=== PATIENT | female | born 1975 | race Caucasian/White ===

== ENCOUNTER 2023-08-14 00:54 | Day surgery (SDC) | payer OTHER, SELFPAY ==
[2023-08-01 15:27] VITALS: BMI 25.8
[2023-08-14 11:32] VITALS: BP 134/77; PULSE 64; RESP 18; TEMP 36.3; O2SAT 100
[2023-08-14] MEDS: LACTATED RINGERS 1,000 ML 150 ML IV CONT (11:41)
--- NOTE | 2023-08-14 11:42 | P.PNAN_ITS ---
Anes - Initial Pre Proc Eval Procedure: Operation Date: 08/14/23 13:00 Proposed Procedures p Esophagogastroduodenoscopy & Colonoscopy - Flako Navarro MD Date/Time: 08/14/23 11:42 Surgeon: Flako Navarro MD Pre Op Diagnosis: change in bowel habit, GERD, abdominal tenderness, Patient Data Age: 48 Gender: F Height: 1.63 m Weight: 69.5 kg Last Vital Signs Temp 97.3 F L 08/14/23 11:32 Pulse 64 08/14/23 11:32 Resp 18 08/14/23 11:32 BP 134/77 08/14/23 11:32 Pulse Ox 100 08/14/23 11:32 O2 Del Method Room Air 08/14/23 11:32 Allergies Allergy/AdvReac Type Severity Reaction Status Date / Time aspirin Allergy Unknown Hives / Verified 08/14/23 11:31 Red Face Penicillins Allergy Unknown Hives / Verified 08/14/23 11:31 Red Face Home Medications Medication Instructions Recorded Confirmed Type pantoprazole 20 mg tablet,delayed 20 mg PO QAM 06/11/23 08/14/23 History release Patient hx anesthesia problems: none Family hx anesthesia problems: none Results Review: All pre-operative results and documents have been reviewed as part of the pre- operative evaluation. [facility] Past Medical History Medical History (Updated 07/03/23 @ 10:06 by Neda Castillo APN-Rob) Anxiety Asthma Change in bowel habits Depression Diabetes GERD (gastroesophageal reflux disease) Nausea and vomiting Surgical History Surgical History History of breast lump/mass excision 1993 - benign cyst History of tonsillectomy 1995 History of tubal ligation 2002 Family History Family History Father CHF (congestive heart failure) Hypertension Other Diabetes mellitus Heart disease Hypertension Cancer CHF (congestive heart failure) COPD (chronic obstructive pulmonary disease) Depression Social History Social History Smoking packs per day: 1 Smoking cigarettes per day: 20.0 Years smoked: 30 Smoking pack-years: 30.00 Smoking status: Current every day smoker Tobacco type: cigarettes Alcohol intake: never Substance use: former Substance use type: marijuana, 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 Informed Consent: The patient's anesthetic plan and its attendant risks and benefits were discussed with the patient/family/POA. Questions were solicited and answers provided to the satisfaction of the patient/family/POA.
--- NOTE | 2023-08-14 11:42 | PM.HPGS ---
History of Present Illness History of Present Illness Consent: Risks, benefits, and alternatives have been discussed and questions answered. Patient agrees to proceed with procedure. Chief complaint: change in bowel habit, GERD, abdominal tenderness, Narrative: Meredith Lindo is a 48 year old female with upper abdominal knot and bloating, she does report a long history of GERD for past 10 years that was treated with H2 blockers.? She was started on pantoprazole 20 mg daily few months ago and reflux symptoms are pretty well controlled. Never had scopes, CT scan no major findings. Review of Systems Constitutional: Constitutional: Denies headache(s) and Denies weakness Eyes: Eyes: Denies blurry vision ENT: Reports Normal hearing present, Denies headache(s) and Denies neck pain Cardiovascular: Cardiovascular: Denies chest pain and Denies dyspnea Respiratory: Respiratory: Denies dyspnea Gastrointestinal: Gastrointestinal: Reports no additional gastrointestinal complaints Genitourinary: Genitourinary: Denies dysuria Musculoskeletal: Musculoskeletal: Denies neck pain Integumentary/Breasts: Skin/Breast: Denies dry skin Neurologic: Reports Normal hearing present, Denies headache(s) and Denies weakness Psychiatric: Psychiatric: Denies anxiety Endocrine: Endocrine: Denies change in body appearance Hematologic/Lymphatic: Hematologic/Lymphatic: Denies easy bleeding Allergic/Immunologic: Allergic/Immunologic: Denies urticaria PMFSH Past Medical History Medical History (Updated 07/03/23 @ 10:06 by REINIER DossN-C) Anxiety Asthma Change in bowel habits Depression Diabetes GERD (gastroesophageal reflux disease) Nausea and vomiting Surgical History Surgical History History of breast lump/mass excision 1993 - benign cyst History of tonsillectomy 1995 History of tubal ligation 2002 Family History Family History Father CHF (congestive heart failure) Hypertension Other Diabetes mellitus Heart disease Hypertension Cancer CHF (congestive heart failure) COPD (chronic obstructive pulmonary disease) Depression Social History Social History Smoking packs per day: 1 Smoking cigarettes per day: 20.0 Years smoked: 30 Smoking pack-years: 30.00 Smoking status: Current every day smoker Tobacco type: cigarettes Alcohol intake: never Substance use: former Substance use type: marijuana, 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) Living arrangements: alone Spiritual care concerns: No Meds Home Medications and Allergies Home Medications Medication Instructions Recorded Confirmed Type pantoprazole 20 mg tablet,delayed 20 mg PO QAM 06/11/23 08/14/23 History release Allergies Allergy/AdvReac Type Severity Reaction Status Date / Time aspirin Allergy Unknown Hives / Verified 08/14/23 11:31 Red Face Penicillins Allergy Unknown Hives / Verified 08/14/23 11:31 Red Face Vital Signs Vital Signs - 24 hr 08/14/23 11:32 Temperature 97.3 F L Pulse Rate 64 Respiratory Rate 18 Blood Pressure 134/77 Pulse Oximetry 100 Oxygen Delivery Room Air Exam Const: General: comfortable and no acute distress HENMT: Face/Nose/Sinus: Normal nares present Eyes: General: appearance normal, both eyes and all related structures Neck: Neck: no JVD Resp: Auscultation: clear to auscultation bilaterally Cardio: Rate: regular rate Rhythm: regular rhythm GI: Inspection: non-distended GI Palp: Yes Soft to palpation Skin: General skin exam: normal color Neuro: General: gait normal Speech: normal speech Extrem: General: normal to inspection Psych: Mental Status: mental status grossly normal Assessment and Plan Assessment and plan
[2023-08-14] MEDS: BENZOCAINE (*SP) 60 ML SPRAY CAN (HURRICAINE) 1 SPRAY MUCOUS MEM (11:50)
--- NOTE | 2023-08-14 11:58 | SUR.OPER ---
EGD start 1150 end 1154, Colonoscopy start 1159.
--- NOTE | 2023-08-14 11:59 | SUR.OPER ---
CHIEF INFORMATION SECURITY OFFICER used oral suction for excess secretions during procedure.
[2023-08-14 12:10] VITALS: BP 87/50; PULSE 68; RESP 22; O2SAT 96
[2023-08-14 12:20] VITALS: BP 97/67; PULSE 70; RESP 20; O2SAT 97
[2023-08-14 12:30] VITALS: BP 105/65; PULSE 64; RESP 20; O2SAT 100
[2023-08-14 12:40] VITALS: BP 110/91; PULSE 72; RESP 20; O2SAT 100
== END 2023-08-14 13:50 | disposition home or self-care (01) ==
PROVIDERS: PCP Nurse Practitioner; Visit Provider Internal Medicine Gastroenterology
PROC: 0DJ08ZZ Inspection of Upper Intestinal Tract, Via Natural or Artificial Opening Endoscopic (ICD-10-PCS; CPT 43235; principal; 2023-08-14 13:00)
DX: Z12.11 Encounter for screening for malignant neoplasm of colon (principal); K29.50 Unspecified chronic gastritis without bleeding; K21.00 Gastro-esophageal reflux disease with esophagitis, without bleeding; K44.9 Diaphragmatic hernia without obstruction or gangrene; F17.210 Nicotine dependence, cigarettes, uncomplicated
CPT/HCPCS: 45378; 43239; 88305; J2704; J7120

== ENCOUNTER 2023-12-19 00:55 | Day surgery (SDC) | payer OTHER, SELFPAY ==
[2023-12-05 14:11] VITALS: BMI 24.1
--- NOTE | 2023-12-17 11:23 | SUR.PREOP ---
Patient called regarding upcoming procedure. Spoke with sister Michelle. Michelle said she would give Meredith the message and have her call me back.
[2023-12-19 12:27] VITALS: BP 121/76; PULSE 65; RESP 19; TEMP 36.2; O2SAT 100
[2023-12-19] MEDS: LACTATED RINGERS 1,000 ML 150 ML IV CONT (12:37)
--- NOTE | 2023-12-19 12:56 | P.PNAN_ITS ---
Anes - Initial Pre Proc Eval Procedure: Operation Date: 12/19/23 14:30 Proposed Procedures p Esophagogastroduodenoscopy - Flako Navarro MD Date/Time: 12/19/23 12:56 Surgeon: Flako Navarro MD Pre Op Diagnosis: Esophagitis Patient Data Age: 48 Gender: F Height: 1.63 m Weight: 65 kg Last Vital Signs Temp 97.1 F L 12/19/23 12:27 Pulse 65 12/19/23 12:27 Resp 19 12/19/23 12:27 BP 121/76 12/19/23 12:27 Pulse Ox 100 12/19/23 12:27 O2 Del Method Room Air 12/19/23 12:27 Allergies Allergy/AdvReac Type Severity Reaction Status Date / Time aspirin Allergy Unknown Hives / Verified 12/19/23 12:26 Red Face Penicillins Allergy Unknown Hives / Verified 12/19/23 12:26 Red Face Home Medications Medication Instructions Recorded Confirmed Type pantoprazole 20 mg tablet,delayed 20 mg PO Q12H #60 tabs 08/14/23 12/19/23 Rx release Patient hx anesthesia problems: none Family hx anesthesia problems: none Results Review: All pre-operative results and documents have been reviewed as part of the pre- operative evaluation. [facility] Past Medical History Medical History (Updated 07/03/23 @ 10:06 by Neda Castillo APN-Rob) Anxiety Asthma Change in bowel habits Depression Diabetes GERD (gastroesophageal reflux disease) Nausea and vomiting Surgical History Surgical History History of breast lump/mass excision 1993 - benign cyst History of tonsillectomy 1995 History of tubal ligation 2002 Family History Family History Father CHF (congestive heart failure) Hypertension Other Diabetes mellitus Heart disease Hypertension Cancer CHF (congestive heart failure) COPD (chronic obstructive pulmonary disease) Depression Social History Social History Smoking packs per day: 1 Smoking cigarettes per day: 20.0 Years smoked: 30 Smoking pack-years: 30.00 Smoking status: Current every day smoker Tobacco type: cigarettes Alcohol intake: current Substance use: former Substance use type: crack/cocaine Other substance usage details: has been sober for 1 yr Living arrangements: other Spiritual care concerns: No Anes - Eval Final PreProcedure Day of Procedure 12/19/23 12:56 Patient weight: normal Heart: regular rate and rhythm Lungs: clear to auscultation Airway: Mallampati scale class II Neurological: alert and oriented Last oral intake: >/= 8 hours ASA classification: II Emergent: no Anesthetic plan: proceed Anesthesia type and monitoring: general GIVS and standard monitoring Results Review: All pre-operative results and documents have been reviewed as part of the pre- operative evaluation. Informed Consent: The patient's anesthetic plan and its attendant risks and benefits were discussed with the patient/family/POA. Questions were solicited and answers provided to the satisfaction of the patient/family/POA.
--- NOTE | 2023-12-19 13:03 | PM.HPGS ---
History of Present Illness History of Present Illness Consent: Risks, benefits, and alternatives have been discussed and questions answered. Patient agrees to proceed with procedure. Chief complaint: Esophagitis Narrative: Meredith Lindo is a 48 year old female with gerd on pantoprazole, still symptomatic, also hiatal hernia. EGD today to assess healing of esophagitis. Review of Systems Constitutional: Constitutional: Denies headache(s) and Denies weakness Eyes: Eyes: Denies blurry vision ENT: Reports Normal hearing present, Denies headache(s) and Denies neck pain Cardiovascular: Cardiovascular: Denies chest pain and Denies dyspnea Respiratory: Respiratory: Denies dyspnea Gastrointestinal: Gastrointestinal: Reports no additional gastrointestinal complaints Genitourinary: Genitourinary: Denies dysuria Musculoskeletal: Musculoskeletal: Denies neck pain Integumentary/Breasts: Skin/Breast: Denies dry skin Neurologic: Reports Normal hearing present, Denies headache(s) and Denies weakness Psychiatric: Psychiatric: Denies anxiety Endocrine: Endocrine: Denies change in body appearance Hematologic/Lymphatic: Hematologic/Lymphatic: Denies easy bleeding Allergic/Immunologic: Allergic/Immunologic: Denies urticaria PMF Past Medical History Medical History (Updated 12/19/23 @ 13:04 by Flako Navarro MD) Anxiety Asthma Change in bowel habits Depression Diabetes GERD (gastroesophageal reflux disease) Hiatal hernia Nausea and vomiting Surgical History Surgical History History of breast lump/mass excision 1993 - benign cyst History of tonsillectomy 1995 History of tubal ligation 2002 Family History Family History Father CHF (congestive heart failure) Hypertension Other Diabetes mellitus Heart disease Hypertension Cancer CHF (congestive heart failure) COPD (chronic obstructive pulmonary disease) Depression Social History Social History Smoking packs per day: 1 Smoking cigarettes per day: 20.0 Years smoked: 30 Smoking pack-years: 30.00 Smoking status: Current every day smoker Tobacco type: cigarettes Alcohol intake: current Substance use: former Substance use type: crack/cocaine Other substance usage details: has been sober for 1 yr Living arrangements: other Spiritual care concerns: No Meds Home Medications and Allergies Home Medications Medication Instructions Recorded Confirmed Type pantoprazole 20 mg tablet,delayed 20 mg PO Q12H #60 tabs 08/14/23 12/19/23 Rx release Allergies Allergy/AdvReac Type Severity Reaction Status Date / Time aspirin Allergy Unknown Hives / Verified 12/19/23 12:26 Red Face Penicillins Allergy Unknown Hives / Verified 12/19/23 12:26 Red Face Vital Signs Vital Signs - 24 hr 12/19/23 12:27 Temperature 97.1 F L Pulse Rate 65 Respiratory Rate 19 Blood Pressure 121/76 Pulse Oximetry 100 Oxygen Delivery Room Air Exam Const: General: comfortable and no acute distress HENMT: Face/Nose/Sinus: Normal nares present Eyes: General: appearance normal, both eyes and all related structures Neck: Neck: no JVD Resp: Auscultation: clear to auscultation bilaterally Cardio: Rate: regular rate Rhythm: regular rhythm GI: Inspection: non-distended GI Palp: Yes Soft to palpation Skin: General skin exam: normal color Neuro: General: gait normal Speech: normal speech Extrem: General: normal to inspection Psych: Mental Status: mental status grossly normal Assessment and Plan Assessment and plan (1) GERD (gastroesophageal reflux disease): Code(s): K21.9 - Gastro-esophageal reflux disease without esophagitis Status: Acute Assessment and Plan: egd to assess healing on ppi daily (2) Hia
[2023-12-19 13:17] VITALS: BP 119/96; PULSE 80; RESP 20; O2SAT 100
[2023-12-19 13:27] VITALS: BP 103/69; PULSE 58; RESP 22; O2SAT 100
[2023-12-19 13:37] VITALS: BP 112/69; PULSE 58; RESP 22; O2SAT 100
== END 2023-12-19 13:57 | disposition home or self-care (01) ==
PROVIDERS: PCP Nurse Practitioner; Visit Provider Internal Medicine Gastroenterology
PROC: 0DJ08ZZ Inspection of Upper Intestinal Tract, Via Natural or Artificial Opening Endoscopic (ICD-10-PCS; CPT 43235; principal; 2023-12-19 14:30)
DX: K21.00 Gastro-esophageal reflux disease with esophagitis, without bleeding (principal); K44.9 Diaphragmatic hernia without obstruction or gangrene; F17.210 Nicotine dependence, cigarettes, uncomplicated; F14.21 Cocaine dependence, in remission
CPT/HCPCS: 43239; 88305; J2704; J7120

== ENCOUNTER 2024-01-28 07:58 | Outpatient (CLI) | payer OTHER, SELFPAY ==
--- NOTE | ~2024-01-28 | XR_ITS ---
EXAMINATION: XR UGIAC w barium swallow DATE: 01/28/2024 09:08 INDICATION: Umbilical hernia. Gastroesophageal reflux disease. TECHNIQUE: The patient drank thick barium, gas-producing crystals, and thin barium. Fluoroscopic spot radiographs of the hypopharynx, esophagus, stomach and proximal small bowel were obtained. Fluorosco py exposure time was 2.1 minutes. A total of 1374 fluoroscopic images were recorded. Total DAP was 9. 923 mGycm^2. COMPARISON: None. FINDINGS: The pharynx is symmetric and without evidence of mass lesion or mucosal irregularity. The e sophagus is normal without mass or stricture. Esophageal motility is normal. Small sliding-type hiata l hernia with gastroesophageal junction approximately 4.5 cm above the level of the diaphragm. There was recurrent spontaneous gastroesophageal reflux the contrast. The stomach and proximal small bowel are otherwise normal. IMPRESSION: 1. Small sliding-type hiatal hernia with multiple episodes of spontaneous gastroesophageal reflux. Reviewed, dictated and finalized at location A. IMPRESSION: 1. Small sliding-type hiatal hernia with multiple episodes of spontaneous gastr oesophageal reflux.
== END 2024-01-28 07:59 | disposition home or self-care (01) ==
PROVIDERS: PCP Nurse Practitioner; Visit Provider Surgery
DX: K21.9 Gastro-esophageal reflux disease without esophagitis (principal); K44.9 Diaphragmatic hernia without obstruction or gangrene
CPT/HCPCS: 74246

== ENCOUNTER 2024-06-03 09:46 | Outpatient (CLI) | payer OTHER, SELFPAY ==
--- NOTE | ~2024-06-03 | XR_ITS ---
EXAMINATION: XR chest 2V 06/03/2024 10:59 INDICATION: Diaphragmatic hernia PROCEDURE: 2 view chest COMPARISON: No prior studies for comparison. FINDINGS: The lungs are clear. The lungs are hyperinflated which is consistent with, but not diagnost ic of chronic obstructive pulmonary disease. The cardiomediastinal silhouette is within normal limits . There are no pleural effusions. There is no pneumothorax suspected. IMPRESSION: 1: NO ACUTE CARDIOPULMONARY DISEASE. Reviewed, dictated and finalized at location B.
--- NOTE | 2024-06-03 09:53 | ECG_ITS ---
Test Date: 2024-06-03 10:07:45 Measurements Intervals [place] Rate: 63 P: 82 PA: 139 QRS: 43 QRSD: 71 T: 11 QT: 415 QTc: 428 Interpretive Statements SINUS RHYTHM POSSIBLE LEFT ATRIAL ENLARGEMENT NONSPECIFIC ST-T WAVE ABNORMALITY- INFERIOR LEADS BASELINE ARTIFACT- I, III, AVR, AVL, AVF, V4-V6 BORDERLINE ECG No previous ECG available for comparison Electronically Signed On 06-03-2024 10:25:40 CDT by Dann Salas D.O.
[2024-06-03 10:16] LABS: Basophils Percent Auto 0.7 % (0.2-1.2); Eosinophils Absolute Auto 0.2 K/mm3 (0-0.3); Hematocrit 37.8 % (37.0-47.0); Hemoglobin 12.1 g/dL (12.0-15.0); Immature Granulocyte Absolute 0.01 K/mm3 (0.00-0.031); Immature Granulocyte Percent A 0.2 % (0-0.5); Lymphocytes Percent Auto 31.6 % (18.3-44.2); Mean Corpuscular Hemoglobin 27.3 pg (26-34); Mean Corpuscular Volume 85.3 fl (80-100); Mean Platelet Volume 9.3 fl (7.4-10.4); Monocytes Absolute Auto 0.6 K/mm3 (0.1-0.6); Monocytes Percent Auto 10.4 % (2.6-8.5); Neutrophils Absolute Auto 2.9 K/mm3 (1.3-6.7); Neutrophils Percent Auto 54.1 % (45.5-73.1); Platelet Count Result 324 k/mm3 (150-375); Red Blood Count 4.43 M/mm3 (4.2-5.4); Red Cell Distribution Width 14.6 % (11.5-14.5); White Blood Count 5.4 K/mm3 (4.5-10.0)
[2024-06-03 10:25] LABS: Anion Gap 6 mmol/L (4-12); Blood Urea Nitrogen 18 mg/dL (7-17); Calcium 8.6 mg/dL (8.4-10.2); Carbon Dioxide 28 mmol/L (22-30); Chloride 103 mmol/L (98-107); Estimated Glomerular Filt Rate > 60; Glucose 92 mg/dL (65-110); Sodium 137 mmol/L (137-145)
== END 2024-06-03 09:47 | disposition home or self-care (01) ==
LOC: ANHSURGERY 09:50
PROVIDERS: PCP Nurse Practitioner; Visit Provider Surgery
DX: Z01.818 Encounter for other preprocedural examination (principal); K44.9 Diaphragmatic hernia without obstruction or gangrene
CPT/HCPCS: 36415; 71046; 80048; 85025; 86850; 86900; 86901; 93005

== ENCOUNTER 2024-06-06 15:26 | Observation (INO) | payer OTHER, SELFPAY ==
[2024-06-02 13:20] VITALS: BMI 24.9
--- NOTE | 2024-06-02 13:22 | PC.NURSE ---
Report to the Outpatient Waiting Room, entrance under the green pavilion located off [facility], at time _1000_ on date _[id number]_. Planned Procedure Time: _1200_. Time changes happen often and if your time is changed the preop area will call you the afternoon before. - You and your visitor will be asked to self-screen and do not enter if you have any COVID symptoms. - A mask is optional within the hospital at this time. Patients may have clear liquids (water, carbonated beverages, clear teas, apple juice) until 3 hours prior to surgery with a maximum of 20 ounces. - No food from midnight until time of surgery Take the following medications with a SIP of water the morning of surgery: ___None DO NOT STOP ANY OF YOUR OTHER PRESCRIPTION MEDICATIONS PRIOR TO SURGERY ?EXCEPT THE FOLLOWING Medications to discontinue per physician None Date to take last dose Please no make-up, nail malay, hairspray, perfume, deodorant, or body powder the day of surgery. No jewelry (including any body piercings) or valuables the day of surgery, leave them at home. Please take a shower or bath the night before, or the morning of, surgery with an antibacterial soap. Wear comfortable, loose fitting clothing. - Jewelry must be removed prior to entering the operating room. Rings and piercings that are not removed may be cut off. - The hospital will not accept responsibility for valuables. - Please leave all valuables, including medications, at home the day of surgery. If you are going home after surgery, a licensed tow motor driver must drive you home. - NO public transportation without another adult if you receive anesthesia. - We recommend that an adult stay with you for 24 hours following discharge. - We also recommend that you do not drive, make important decision, drink alcoholic beverages, or take any drugs that were not prescribed by your health care provider for at least 24 hours after your discharge time. Follow any additional instructions given to you from your surgeon. If you or anyone in your household have experienced Covid symptoms in the past week, please notify your surgeon or the nurse liaison at the phone number below for possible testing. Telephone instructions given to __Rosannaafrica___and asked if any additional questions and then verbalized understanding. Patient advised to call surgeon office or pre surgery nurse liaison [phone] if any additional questions.
[2024-06-05] VITALS (12 sets, daily range): BP systolic 125–169; BP diastolic 62–92; PULSE 56–84; RESP 10–20; TEMP 36.1–37.1; O2SAT 94–100
[2024-06-05] MEDS: LACTATED RINGERS 1,000 ML 30 ML IV CONT ×2 (10:35→15:49)
--- NOTE | 2024-06-05 11:11 | WPDANESEPPF ---
Anes - Initial Pre Proc Eval Procedure: Operation Date: 06/05/24 12:00 Proposed Procedures p Robotic Laparoscopic Repair Hiatal Hernia Repair with Amelia Fundoplication, Removal Adominal Wall Nodule - Td Pat MD Date/Time: 06/05/24 11:11 Surgeon: Td Pat MD Pre Op Diagnosis: hiatal hernia Patient Data Age: 48 Gender: F Height: 1.63 m Weight: 66.2 kg Last Vital Signs Temp 97.5 F L 06/05/24 09:59 Pulse 72 06/05/24 09:59 Resp 20 06/05/24 09:59 BP 125/92 H 06/05/24 09:59 Pulse Ox 100 06/05/24 09:59 O2 Del Method Room Air 06/05/24 09:59 Allergies Allergy/AdvReac Type Severity Reaction Status Date / Time aspirin Allergy Unknown Hives / Verified 06/05/24 10:12 Red Face Penicillins Allergy Unknown Hives / Verified 06/05/24 10:12 Red Face hydrocodone [From Vicodin] Allergy Vomiting Verified 06/05/24 10:12 Home Medications Medication Instructions Recorded Confirmed Type famotidine 40 mg tablet 40 mg PO DAILY 01/10/24 06/05/24 History Patient hx anesthesia problems: none Family hx anesthesia problems: none Results Review: All pre-operative results and documents have been reviewed as part of the pre-operative evaluation. [facility] Past Medical History Medical History Anxiety Asthma Change in bowel habits Depression Diabetes GERD (gastroesophageal reflux disease) Hiatal hernia Nausea and vomiting Surgical History Surgical History History of breast lump/mass excision 1993 - benign cyst History of tonsillectomy 1995 History of tubal ligation 2002 Family History Family History Father CHF (congestive heart failure) Hypertension Other Diabetes mellitus Heart disease Hypertension Cancer CHF (congestive heart failure) COPD (chronic obstructive pulmonary disease) Depression Social History Social History Smoking packs per day: 1 Smoking cigarettes per day: 20.0 Years smoked: 30 Smoking pack-years: 30.00 Smoking status: Never smoker Tobacco type: cigarettes and e-cigarettes/vaping Alcohol intake: former 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 Substance use: former Substance use type: marijuana, crack/cocaine and methamphetamine Other substance usage details: 18 months clean Do You Feel Safe in your Home?: Yes Lack of Transportation: No Lack of Food: Never True Current Housing: I Have Housing Concerned About Future Housing: No Difficulty Paying Gas/Electric Bills: No Difficulty Paying for Meds: No Currently Unemployed: No Education: High School Diploma/GED Difficulty w/ Childcare or Family Care: No Living arrangements: with family Spiritual care concerns: No Anes - Eval Final PreProcedure Day of Procedure 06/05/24 11:11 Patient weight: overweight Heart: regular rate and rhythm Lungs: clear to auscultation Airway: Mallampati scale and special considerations (Missing many teeth on the lower mid aspect. ) Neurological: alert and oriented Last oral intake: >/= 8 hours ASA classification: II Emergent: no Anesthetic plan: proceed Anesthesia type and monitoring: general ETT and standard monitoring Results Review: All pre-operative results and documents have been reviewed as part of the pre-operative evaluation. Ex smoker, quit 2023, 30 pk/yrs. Pt currently vapes, most recently today at 930. PreDM per pt. Informed Consent: The patient's anesthetic plan and its attendant risks and benefits were discussed with the patient/family/POA. Questions were solicited and answers provided to the satisfaction of the patient/family/POA.
--- NOTE | 2024-06-05 11:40 | WPDHPUPDATE1 ---
History and Physical Update Update Date/Time: 06/05/24 11:40 History and Physical has been reviewed, including an updated exam of the patient. There are NO changes in the patient's condition. Risks, benefits, and alternatives have been discussed and questions answered. Patient agrees to proceed with procedure.
--- NOTE | 2024-06-05 12:02 | PM.IMHP ---
H&P: HPI History of Present Illness Date/Time: 06/05/24 12:02 Chief Complaint: Reflux, heartburn Narrative: patient is a 48-year-old woman who has been experiencing severe heartburn with nausea and vomiting for nearly a year. Last December she had an EGD which showed esophagitis and hiatal hernia. She had a barium swallow upper GI which showed a small hiatal hernia but multiple episodes of reflux. Esophageal manometry showed a hiatal hernia and a relatively normal lower esophageal sphincter pressure. The esophageal manometry showed that the esophageal peristalsis is adequate for hiatal hernia repair. She was taking Protonix but actually gets better relief with Pepcid 40 mg daily. Even with this she has frequent nausea vomiting and still heartburn. After thorough discussion, she is taken to surgery now for robotic laparoscopic hiatal hernia repair with fundoplication. She is a smoker but is a recovering cocaine addict and has been drug free for 18 months. She also has a tender subcutaneous nodule on the right side of the abdomen just above the umbilicus. We are going to remove this at the same procedure. Review of Systems Review of Systems: All systems reviewed & are unremarkable except as noted in HPI and below ( HPI) [facility] Past Medical History Medical History Anxiety Asthma Change in bowel habits Depression Diabetes GERD (gastroesophageal reflux disease) Hiatal hernia Nausea and vomiting Surgical History Surgical History History of breast lump/mass excision 1993 - benign cyst History of tonsillectomy 1995 History of tubal ligation 2002 Family History Family History Father CHF (congestive heart failure) Hypertension Other Diabetes mellitus Heart disease Hypertension Cancer CHF (congestive heart failure) COPD (chronic obstructive pulmonary disease) Depression Social History Social History Smoking packs per day: 1 Smoking cigarettes per day: 20.0 Years smoked: 30 Smoking pack-years: 30.00 Smoking status: Never smoker Tobacco type: cigarettes and e-cigarettes/vaping Alcohol intake: former 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 Substance use: former Substance use type: marijuana, crack/cocaine and methamphetamine Other substance usage details: 18 months clean Do You Feel Safe in your Home?: Yes Lack of Transportation: No Lack of Food: Never True Current Housing: I Have Housing Concerned About Future Housing: No Difficulty Paying Gas/Electric Bills: No Difficulty Paying for Meds: No Currently Unemployed: No Education: High School Diploma/GED Difficulty w/ Childcare or Family Care: No Living arrangements: with family Spiritual care concerns: No Meds Home Medications and Allergies Home Medications Medication Instructions Recorded Confirmed Type famotidine 40 mg tablet 40 mg PO DAILY 01/10/24 06/05/24 History Allergies Allergy/AdvReac Type Severity Reaction Status Date / Time aspirin Allergy Unknown Hives / Verified 06/05/24 10:12 Red Face Penicillins Allergy Unknown Hives / Verified 06/05/24 10:12 Red Face hydrocodone [From Vicodin] Allergy Vomiting Verified 06/05/24 10:12 Vital Signs Vital Signs - 24 hr 06/05/24 09:59 Temperature 36.4 C L Pulse Rate 72 Respiratory Rate 20 Blood Pressure 125/92 H Pulse Oximetry 100 Oxygen Delivery Room Air Exam Const: General: cooperative, comfortable, no acute distress, alert, awake and anxious Orientation/consciousness: patient oriented x3 and No confusion HENMT: Head: normocephalic and atraumatic Mouth: Yes Normal oral and palatal mucosa present Eyes: Conjunctivae: conjunctivae normal Pupils: Equal, round and reactive pupils present EOM: EOMs intact bi
[2024-06-05] MEDS: ceFAZolin 2 GM/D5W 50 ML 2 GM/50 ML BAG IVPB (12:07)
[2024-06-05] MEDS: BUPIVACAINE/EPINEPHRINE 0.5% 10 ML VIAL 50 ML INFILTRATE (12:46)
--- NOTE | 2024-06-05 16:04 | W.PM.PROC2 ---
Procedure Note - Detailed Date of Procedure 06/05/24 Pre-op Diagnosis hiatal hernia, gastroesophageal reflux disease with esophagitis, subcutaneous nodule abdominal wall Post-op Diagnosis Other (Gastroesophageal reflux with esophagitis, hiatal hernia, subcutaneous lipoma abdominal wall-2 cm) Procedure Performed Robotic laparoscopic repair hiatal hernia with fundoplication, removal lipoma abdominal wall Surgeon Td Pat MD Payroll And Benefits Analyst Roland LOPEZ Anesthesia General and Local Indications Patient has symptoms of reflux as well as nausea and vomiting despite taking antacid medications. She had an EGD in December which showed esophagitis and a hiatal hernia. She has had esophageal manometry which showed adequate esophageal motility. An upper GI showed a hiatal hernia and spontaneous reflux. She is taken to surgery now for robotic laparoscopic repair of her hiatal hernia as well as fundoplication. Patient also has a subcutaneous nodule in the mid abdomen just to the right of midline that has been very tender. This is being removed at the same procedure. Findings The nodule was a 2 x 2 x 1.5 cm lipoma. She had a large hiatal hernia with a lot of scar tissue associated. No other significant findings. Description of Procedure The patient was taken to surgery and induced into general anesthesia. The abdomen is prepped and draped. The painful subcutaneous nodule had been marked on the skin in the preoperative area. I infiltrated local over the anticipated incision. I then made the incision and a lipoma was seen just under the skin. This was dissected free from the skin and surrounding subcutaneous tissue using blunt and sharp dissection. It was removed and measured. It measured 2 x 2 x 1.5 cm. It was sent to pathology in formalin. The wound was made hemostatic with cautery. It was closed with subcuticular 4-0 Monocryl skin suture. We then proceeded with the hiatal hernia repair. Initial trocar was placed in the left subcostal position. The varies needle was introduced and insufflation carried out. I then placed a 5 mm applied Medical optical trocar in this position. With this in place we were able to look in the abdomen and see that there had been no injury with the trocar placement. We then placed the subhepatic right-sided operating port. To the right of midline another robotic port was placed. This would be our robotic assist port. A 4th port was placed more laterally in the subcostal position on the patient's left. This was also a robotic 8 mm port. I switched out the 5 mm port for the 8 mm robotic trocar. The initial trocar site would be for our camera. Finally in the right abdomen above but just to the right of the umbilicus, a 10 11 port was placed for our assistant store manager sales. Patient was placed in 30 degree reverse Trendelenburg. The robot was brought into the field and all the ports were docked and targeted. The surgeon then went to the robotic console. The right-sided robotic assist port had the Small Graptor placed and this was positioned to hold up the lateral segment of the left lobe of the liver so that we could see the hiatus. The View and Chewe grasper and vessel sealer were used as the surgical instruments for the dissection. We started the dissection by dividing the hepatogastric ligament. The right vitor was then easily seen. The stomach was stuck in the hiatus. I dissected as high as I could on the right vitor and then started to retract the stomach and dissect the upper aspect of the left vitor. This was largely done with the vessel sealer. I then started reducing the stomach and found the hernia sac. Placing some traction on the hernia sac I dissected the sac from the mediastinum staying in the with be area older tissue. The sac was reduced and then further dissection both to the patient's right and to the left was carried out. I was then able to get around the hernia sac to the far right near the heart and dissected on their the he
[2024-06-05] MEDS: fentaNYL CITRATE INJ (*CRX) 100 MCG/2 ML VIAL 25 MCG IV PUSH ×4 (16:19→16:38)
--- NOTE | 2024-06-05 17:38 | PCRCNOTE ---
Pt. unable to do the I.S. at this time due to being unable to use a straw after surgery. Pt. instructed to take some deep breaths and hold them to help keep her lungs open and clear; R.N. aware.
--- NOTE | 2024-06-05 18:21 | PC.NURSE ---
This patient, Meredith Lindo, was admitted to [facility] Surg Room 326-01. Patient/family oriented to hospital policies and general routines including ID bracelet, bed and alarms, visiting hours, pain management, procedures, bathroom and other care routines, personal items, smoking policy, room service/diet, and visiting hours. Information on how to activate the Rapid Response Team has been discussed. Patient/Family are encouraged to report perceived risks to care and to ask questions if they do not understand what they are told or what they should do.
[2024-06-05] MEDS: LACTATED RINGERS 1,000 ML 100 ML IV CONT (19:46)
[2024-06-05] MEDS: ONDANSETRON INJ 4 MG/2 ML VIAL IV PUSH (19:55)
[2024-06-05] MEDS: MORPHINE SULFATE (*CRX) 2 MG/ML INJ IV PUSH (20:06)
[2024-06-05] MEDS: SENNA/DOCUSATE SODIUM TABLET 2 TAB PO (20:07)
[2024-06-06] VITALS (9 sets, daily range): BP systolic 117–165; BP diastolic 65–85; PULSE 59–73; RESP 16–20; TEMP 36.1–37.5; O2SAT 96–100
[2024-06-06] MEDS: IBUPROFEN IV 800 MG/200 ML 800 MG/200 ML BAG 400 MG IVPB (00:48)
[2024-06-06] MEDS: oxyCODONE/ACETAMINOPHEN (*CRX) 10-325 MG TABLET 1 TAB PO ×2 (06:38→22:34)
[2024-06-06 06:47] LABS: Hematocrit 35.9 % (37.0-47.0); Hemoglobin 11.2 g/dL (12.0-15.0); Mean Corpuscular HGB Conc 31.2 g/dl (32-36); Mean Corpuscular Hemoglobin 27.2 pg (26-34); Mean Corpuscular Volume 87.1 fl (80-100); Mean Platelet Volume 9.6 fl (7.4-10.4); Platelet Count Result 336 k/mm3 (150-375); Red Blood Count 4.12 M/mm3 (4.2-5.4); Red Cell Distribution Width 15.3 % (11.5-14.5); White Blood Count 11.3 K/mm3 (4.5-10.0)
[2024-06-06 06:56] LABS: Anion Gap 8 mmol/L (4-12); Blood Urea Nitrogen 18 mg/dL (7-17); Calcium 7.8 mg/dL (8.4-10.2); Carbon Dioxide 23 mmol/L (22-30); Chloride 104 mmol/L (98-107); Estimated CRCL calculation 65 ml/min; Estimated Glomerular Filt Rate > 60; Glucose 106 mg/dL (65-110); Potassium 3.9 mmol/L (3.4-5.0); Sodium 135 mmol/L (137-145)
[2024-06-06] MEDS: ENOXAPARIN 40 MG/0.4 ML SYRINGE SUB-Q (09:06)
[2024-06-06] MEDS: polyethylene glycoL 3350 17 GM POWD.PACK PO (09:06)
[2024-06-06] MEDS: FAMOTIDINE 20 MG TABLET 40 MG PO (09:06)
--- NOTE | 2024-06-06 09:40 | WPDANESPN ---
Anes - Prog Note Post-Op Date/Time: 06/06/24 09:40 Cardiovascular status: normal Respiratory status: normal Airway patency: baseline Mental status: baseline Post-Op hydration status: normal Vital Signs: Last Vital Signs Temp 36.9 C 06/06/24 06:13 Pulse 66 06/06/24 06:13 Resp 20 06/06/24 06:13 BP 133/85 06/06/24 06:13 Pulse Ox 96 06/06/24 06:13 O2 Del Method Room Air 06/05/24 20:00 O2 Flow Rate 8 06/05/24 16:15 Pain Score (VAS): 0 I/O: Intake & Output 06/05/24 06/06/24 06/06/24 23:59 07:59 15:59 Intake Total 1100 120 Balance 1100 120 Laboratory Tests 06/06/24 06:14 06/06/24 06:14 06/06/24 06:14 WBC 11.3 H RBC 4.12 L Hgb 11.2 L Hct 35.9 L MCV 87.1 MCH 27.2 MCHC 31.2 L RDW 15.3 H Plt Count 336 MPV 9.6 Sodium 135 L Potassium 3.9 Chloride 104 Carbon Dioxide 23 Anion Gap 8 BUN 18 H Creatinine 0.80 Estim Creat Clear Calc 65 Estimated GFR > 60 Glucose 106 Calcium 7.8 L Post-procedural complaints: none Patient Feedback: Patient satisfied with anesthetic care.
--- NOTE | 2024-06-06 14:17 | PM.PNGS ---
Progress Note: A&P Assessment and Plan (1) Hiatal hernia with GERD and esophagitis: Code(s): K44.9 - Diaphragmatic hernia without obstruction or gangrene; K21.00 - Gastro-esophageal reflux disease with esophagitis, without bleeding Status: Chronic Assessment and Plan: Doing well postop day 1. Will advance to full liquids. Up walking some today. Still taking IV analgesics for pain. Will try oral analgesics today. Doing well but not ready for discharge due to pain and unable to ambulate independently. (2) Subcutaneous nodule of abdominal wall: Code(s): R22.2 - Localized swelling, mass and lump, trunk Status: Chronic Assessment and Plan: Grossly a lipoma. Removed without incident. (3) History of drug use: Code(s): F19.91 - Other psychoactive substance use, unspecified, in remission Status: Chronic Assessment and Plan: Has been off cocaine for 18 months. Subjective Subjective Date/Time Seen: 06/06/24 14:17 Post Op day: 1 Patient reports: still having pain, tolerating liquids well and afebrile Exam Const: General: comfortable, no acute distress, alert and awake Orientation/consciousness: patient oriented x3 GI: Inspection: no abdominal wall ecchymosis, non-distended and incision (Clean and dry) GI Palp: Yes Soft to palpation, Yes Tenderness to palpation present (GI), No Guarding due to palpation present (GI) and No Rebound tenderness present Neuro: General: patient oriented x3 and no focal motor deficits Extrem: General: no calf tenderness and no edema Psych: Affect: normal affect Insight: Good insight present (Psych) Judgement: Good judgement present (Psych) Objective Data Vital Signs Vital Signs: Vital Signs - 24 hr 06/05/24 15:49 06/05/24 16:00 06/05/24 16:15 Temperature 36.6 C Pulse Rate 82 81 72 Respiratory Rate 10 L 16 18 Blood Pressure 149/88 H 151/78 H 156/80 H Pulse Oximetry 97 100 100 Oxygen Delivery Simple Face Mask Simple Face Mask Simple Face Mask Oxygen Flow Rate 8 8 8 06/05/24 16:30 06/05/24 16:45 06/05/24 16:55 Temperature Pulse Rate 70 71 84 Respiratory Rate 14 12 16 Blood Pressure 133/65 132/81 148/62 H Pulse Oximetry 95 94 97 Oxygen Delivery Room Air Room Air Room Air Oxygen Flow Rate 06/05/24 17:15 06/05/24 17:32 06/05/24 18:00 Temperature 36.2 C L 36.1 C L 36.2 C L Pulse Rate 56 L 71 72 Respiratory Rate 18 16 18 Blood Pressure 152/83 H 148/85 H 153/87 H Pulse Oximetry 96 97 98 Oxygen Delivery Oxygen Flow Rate 06/05/24 18:42 06/05/24 22:02 06/05/24 20:00 Temperature 36.6 C 37.1 C Pulse Rate 60 56 L Respiratory Rate 16 20 Blood Pressure 169/77 H 155/85 H Pulse Oximetry 98 99 Oxygen Delivery Room Air Oxygen Flow Rate 06/06/24 00:48 06/06/24 01:12 06/06/24 01:45 Temperature 37.5 C 37.3 C 37.0 C Pulse Rate 73 Respiratory Rate 18 Blood Pressure 163/81 H Pulse Oximetry 96 Oxygen Delivery Oxygen Flow Rate 06/06/24 06:13 06/06/24 10:42 Temperature 36.9 C 36.1 C L Pulse Rate 66 62 Respiratory Rate 20 18 Blood Pressure 133/85 163/77 H Pulse Oximetry 96 97 Oxygen Delivery Oxygen Flow Rate Intake/Output Intake/Output: Intake & Output 06/03/24 06/04/24 06/05/24 06/06/24 23:59 23:59 23:59 23:59 Intake Total 1150 120 Balance 1150 120 Meds/Results Medications: Active Medications Generic Name Dose Route Start Last Admin Trade Name Freq PRN Reason Stop Dose Admin Acetaminophen 500 mg 06/05/24 16:57 Acetaminophen 500 Mg Tablet PO Q6H PRN Pain Rated 1-3 Enoxaparin Sodium 40 mg 06/06/24 09:00 06/06/24 09:06 Enoxaparin 40 Mg/0.4 Ml Syringe SUB-Q 40 mg DAILY ESCOBAR Administration Famotidine 40 mg 06/06/24 09:00 06/06/24 09:06 Famotidine 20 Mg Tablet PO 40 mg DAILY ESCOBAR Administration Fentanyl Citrate 25 mcg 06/04/24 14:06 06/05/24 16:38 Fentanyl Citrate Inj (*Crx) 100 Mcg/2 Ml Vial IV PUSH 25 mcg
[2024-06-06] MEDS: oxyCODONE/ACETAMINOPHEN (*CRX) 5-325 MG TABLET 1 TABLET PO (17:02)
[2024-06-06] MEDS: SENNA/DOCUSATE SODIUM TABLET 2 TAB PO (21:00)
[2024-06-07] VITALS (8 sets, daily range): BP systolic 101–134; BP diastolic 50–79; PULSE 62–81; RESP 16–20; TEMP 36.3–36.7; O2SAT 95–100
[2024-06-07 06:29] LABS: Hematocrit 36.4 % (37.0-47.0); Hemoglobin 11.6 g/dL (12.0-15.0); Mean Corpuscular HGB Conc 31.9 g/dl (32-36); Mean Corpuscular Hemoglobin 27.7 pg (26-34); Mean Corpuscular Volume 86.9 fl (80-100); Mean Platelet Volume 9.4 fl (7.4-10.4); Platelet Count Result 338 k/mm3 (150-375); Red Blood Count 4.19 M/mm3 (4.2-5.4); Red Cell Distribution Width 15.1 % (11.5-14.5); White Blood Count 9.3 K/mm3 (4.5-10.0)
[2024-06-07 06:50] LABS: Anion Gap 4 mmol/L (4-12); Blood Urea Nitrogen 12 mg/dL (7-17); Carbon Dioxide 29 mmol/L (22-30); Chloride 102 mmol/L (98-107); Estimated CRCL calculation 65 ml/min; Estimated Glomerular Filt Rate > 60; Glucose 99 mg/dL (65-110); Potassium 3.9 mmol/L (3.4-5.0); Sodium 135 mmol/L (137-145)
[2024-06-07] MEDS: oxyCODONE/ACETAMINOPHEN (*CRX) 10-325 MG TABLET 1 TAB PO ×2 (08:51→17:45)
[2024-06-07] MEDS: FAMOTIDINE 20 MG TABLET 40 MG PO (08:52)
[2024-06-07] MEDS: polyethylene glycoL 3350 17 GM POWD.PACK PO (08:52)
[2024-06-07] MEDS: ENOXAPARIN 40 MG/0.4 ML SYRINGE SUB-Q (08:56)
[2024-06-07] MEDS: ACETAMINOPHEN 500 MG TABLET PO ×2 (11:34→19:13)
--- NOTE | 2024-06-07 11:58 | WPDPN ---
Progress Note: A&P Assessment and Plan (1) Hiatal hernia with GERD and esophagitis: Code(s): K44.9 - Diaphragmatic hernia without obstruction or gangrene; K21.00 - Gastro-esophageal reflux disease with esophagitis, without bleeding Status: Chronic Assessment and Plan: Progressing well after robotic assisted laparoscopic repair of diaphragmatic hernia with Amelia fundoplication. She is tolerating liquids well without dysphagia. Pain is well controlled with oral pain medications. We will go ahead advance her to soft diet today. She is tolerating that well than likely can be discharged home tomorrow. Subjective Date/time seen: 06/07/24 11:58 Interval history: Pt is doing very well this am. Up in bed and dressed in street clothes. Pain well controlled. Tolerated liquids. No problems with regurg or dysphagia. Exam GI: Other: Abdomen is soft and nondistended. Port site incisions appear to be healing well. No redness or drainage from the incisions. Objective Data Vital Signs Vital Signs: Vital Signs - 24 hr 06/06/24 14:42 06/06/24 18:00 06/06/24 20:03 Temperature 36.2 C L 36.3 C L 36.4 C Pulse Rate 72 59 L 61 Respiratory Rate 16 16 16 Blood Pressure 165/77 H 117/65 151/72 H Pulse Oximetry 99 99 100 Oxygen Delivery 06/06/24 20:00 06/07/24 01:40 06/07/24 05:21 Temperature 36.6 C 36.7 C Pulse Rate 61 64 68 Respiratory Rate 16 20 16 Blood Pressure 115/50 L 134/69 Pulse Oximetry 100 99 95 Oxygen Delivery Room Air 06/07/24 08:02 06/07/24 10:00 06/07/24 08:50 Temperature 36.6 C Pulse Rate 81 Respiratory Rate 18 Blood Pressure 125/76 Pulse Oximetry 95 97 Oxygen Delivery Room Air Room Air Intake/Output Intake/Output: Intake & Output 06/04/24 06/05/24 06/06/24 06/07/24 23:59 23:59 23:59 23:59 Intake Total 1150 342 500 Balance 1150 342 500 Meds/Results Medications: Active Medications Generic Name Dose Route Start Last Admin Trade Name Freq PRN Reason Stop Dose Admin Acetaminophen 500 mg 06/05/24 16:57 06/07/24 11:34 Acetaminophen 500 Mg Tablet PO 500 mg Q6H PRN Administration Pain Rated 1-3 Enoxaparin Sodium 40 mg 06/06/24 09:00 06/07/24 08:56 Enoxaparin 40 Mg/0.4 Ml Syringe SUB-Q 40 mg DAILY ESCOBAR Administration Famotidine 40 mg 06/06/24 09:00 06/07/24 08:52 Famotidine 20 Mg Tablet PO 40 mg DAILY ESCOBAR Administration Ibuprofen 800 mg in 200 mls @ 400 mls/hr 06/05/24 16:57 06/06/24 00:48 Caldolor 800 Mg/200 Ml IVPB 400 mls/hr Q6H PRN Administration Breakthrough Pain Rated 1-3 or NPO Morphine Sulfate 2 mg 06/05/24 16:57 06/05/24 20:06 Morphine Sulfate (*Crx) 2 Mg/Ml Inj IV PUSH 2 mg Q2H PRN Administration Breakthrough Pain Rated 4-6 or NPO Morphine Sulfate 4 mg 06/05/24 16:57 Morphine Sulfate (*Crx) 4 Mg/Ml Inj IV PUSH Q2H PRN Breakthrough Pain Rated 7-10 or NPO Naloxone HCl 0.1 mg 06/05/24 16:57 Naloxone Hcl 0.4 Mg/Ml Vial IV PUSH Q2M PRN Opiate Reversal Ondansetron HCl 4 mg 06/04/24 14:06 06/05/24 19:55 Ondansetron Inj 4 Mg/2 Ml Vial IV PUSH 4 mg ONCE PRN Administration Nausea Ondansetron HCl 4 mg 06/05/24 16:57 Ondansetron Inj 4 Mg/2 Ml Vial IV PUSH Q4H PRN Nausea And Vomiting Oxycodone/Acetaminophen 1 tablet 06/05/24 16:57 06/06/24 17:02 Oxycodone/Acetaminophen (*Crx) 5-325 Mg Tablet PO 1 tablet Q4H PRN Administration Pain Rated 4-6 Oxycodone/Acetaminophen 1 tab 06/05/24 16:57 06/07/24 08:51 Oxycodone/Acetaminophen (*Crx) 10-325 Mg Tablet PO 1 tab Q6H PRN Administration Pain Rated 7-10 Polyethylene Glycol 17 gm 06/06/24 09:00 06/07/24 08:52 Polyethylene Glycol 3350 17 Gm Powd.Pack PO 17 gm QAM ESCOBAR Administration Senna/Docusate Sodium 2 tab 06/05/24 21:00 06/06/24 21:00 Senna/Docusate Sodium Tablet PO 2 tab HS [facility] Administration Labs Labs:
[2024-06-07] MEDS: SENNA/DOCUSATE SODIUM TABLET 2 TAB PO (20:25)
[2024-06-08] MEDS: oxyCODONE/ACETAMINOPHEN (*CRX) 10-325 MG TABLET 1 TAB PO ×2 (00:42→08:59)
[2024-06-08 05:14] VITALS: BP 117/64; PULSE 64; RESP 18; TEMP 36.6; O2SAT 97
[2024-06-08] MEDS: ACETAMINOPHEN 500 MG TABLET PO (05:31)
[2024-06-08 06:22] LABS: Hematocrit 35.6 % (37.0-47.0); Hemoglobin 11.4 g/dL (12.0-15.0); Mean Corpuscular Hemoglobin 27.4 pg (26-34); Mean Corpuscular Volume 85.6 fl (80-100); Mean Platelet Volume 9.2 fl (7.4-10.4); Platelet Count Result 312 k/mm3 (150-375); Red Blood Count 4.16 M/mm3 (4.2-5.4); Red Cell Distribution Width 14.6 % (11.5-14.5); White Blood Count 7.3 K/mm3 (4.5-10.0)
[2024-06-08 06:35] LABS: Anion Gap 4 mmol/L (4-12); Blood Urea Nitrogen 12 mg/dL (7-17); Calcium 8.3 mg/dL (8.4-10.2); Carbon Dioxide 31 mmol/L (22-30); Chloride 102 mmol/L (98-107); Estimated CRCL calculation 74 ml/min; Estimated Glomerular Filt Rate > 60; Glucose 82 mg/dL (65-110); Potassium 3.7 mmol/L (3.4-5.0); Sodium 137 mmol/L (137-145)
[2024-06-08] MEDS: ENOXAPARIN 40 MG/0.4 ML SYRINGE SUB-Q (09:00)
[2024-06-08] MEDS: FAMOTIDINE 20 MG TABLET 40 MG PO (09:00)
--- NOTE | 2024-06-08 11:46 | WPDPN ---
Progress Note: A&P Assessment and Plan (1) Hiatal hernia with GERD and esophagitis: Code(s): K44.9 - Diaphragmatic hernia without obstruction or gangrene; K21.00 - Gastro-esophageal reflux disease with esophagitis, without bleeding Status: Chronic Assessment and Plan: Will go ahead and discharge patient. She is tolerating soft diet without any issues. She was complaining having some pain with her gums and some bleeding and I told her she needed to see her dentist for issues with her dentition or gums. She should come back to see Dr. Pat in the office in about 2 weeks. Continue on her home medications to include her anti reflux medications for now. Subjective Date/time seen: 06/08/24 11:46 Interval history: Patient is doing well today. No complaints. Tolerated soft diet without difficulty. No reflux. No dysphagia. Exam GI: Other: Abdomen soft and nondistended. Port site incisions are healing well. There is no redness or drainage. Objective Data Vital Signs Vital Signs: Vital Signs - 24 hr 06/07/24 14:10 06/07/24 17:44 06/07/24 20:00 Temperature 36.3 C L 36.3 C L Pulse Rate 62 71 71 Respiratory Rate 18 18 18 Blood Pressure 110/70 101/79 Pulse Oximetry 98 99 99 Oxygen Delivery Room Air 06/07/24 22:00 06/08/24 05:14 Temperature 36.3 C L 36.6 C Pulse Rate 65 64 Respiratory Rate 16 18 Blood Pressure 104/57 L 117/64 Pulse Oximetry 100 97 Oxygen Delivery Intake/Output Intake/Output: Intake & Output 06/05/24 06/06/24 06/07/24 06/08/24 23:59 23:59 23:59 23:59 Intake Total 1150 342 740 Balance 1150 342 740 Meds/Results Medications: Active Medications Generic Name Dose Route Start Last Admin Trade Name Freq PRN Reason Stop Dose Admin Acetaminophen 500 mg 06/05/24 16:57 06/08/24 05:31 Acetaminophen 500 Mg Tablet PO 500 mg Q6H PRN Administration Pain Rated 1-3 Enoxaparin Sodium 40 mg 06/06/24 09:00 06/08/24 09:00 Enoxaparin 40 Mg/0.4 Ml Syringe SUB-Q 40 mg DAILY ESCOBAR Administration Famotidine 40 mg 06/06/24 09:00 06/08/24 09:00 Famotidine 20 Mg Tablet PO 40 mg DAILY ESCOBAR Administration Ibuprofen 800 mg in 200 mls @ 400 mls/hr 06/05/24 16:57 06/06/24 00:48 Caldolor 800 Mg/200 Ml IVPB 400 mls/hr Q6H PRN Administration Breakthrough Pain Rated 1-3 or NPO Morphine Sulfate 2 mg 06/05/24 16:57 06/05/24 20:06 Morphine Sulfate (*Crx) 2 Mg/Ml Inj IV PUSH 2 mg Q2H PRN Administration Breakthrough Pain Rated 4-6 or NPO Morphine Sulfate 4 mg 06/05/24 16:57 Morphine Sulfate (*Crx) 4 Mg/Ml Inj IV PUSH Q2H PRN Breakthrough Pain Rated 7-10 or NPO Naloxone HCl 0.1 mg 06/05/24 16:57 Naloxone Hcl 0.4 Mg/Ml Vial IV PUSH Q2M PRN Opiate Reversal Ondansetron HCl 4 mg 06/04/24 14:06 06/05/24 19:55 Ondansetron Inj 4 Mg/2 Ml Vial IV PUSH 4 mg ONCE PRN Administration Nausea Ondansetron HCl 4 mg 06/05/24 16:57 Ondansetron Inj 4 Mg/2 Ml Vial IV PUSH Q4H PRN Nausea And Vomiting Oxycodone/Acetaminophen 1 tablet 06/05/24 16:57 06/06/24 17:02 Oxycodone/Acetaminophen (*Crx) 5-325 Mg Tablet PO 1 tablet Q4H PRN Administration Pain Rated 4-6 Oxycodone/Acetaminophen 1 tab 06/05/24 16:57 06/08/24 08:59 Oxycodone/Acetaminophen (*Crx) 10-325 Mg Tablet PO 1 tab Q6H PRN Administration Pain Rated 7-10 Polyethylene Glycol 17 gm 06/06/24 09:00 06/08/24 09:01 Polyethylene Glycol 3350 17 Gm Powd.Pack PO Not Given QAM ESCOBAR Senna/Docusate Sodium 2 tab 06/05/24 21:00 06/07/24 20:25 Senna/Docusate Sodium Tablet PO 2 tab HS ESCOBAR Administration Labs Labs: Laboratory Results - last 24 hr 06/08/24 06:03 WBC 7.3 RBC 4.16 L Hgb 11.4 L Hct 35.6 L MCV 85.6 MCH 27.4 MCHC 32.0 RDW 14.6 H Plt Count 312 MPV 9.2 Sodium 137 Potassium 3.7 Chloride 102 Carbon Dioxide 31 H Anion Gap 4 BUN 12 Crea
[2024-06-08] MEDS: oxyCODONE/ACETAMINOPHEN (*CRX) 5-325 MG TABLET 1 TABLET PO (13:55)
--- NOTE | 2024-06-09 07:07 | PM.DS ---
DS: Admitting Diagnosis Discharge Date 06/08/24 Admitting Diagnosis GERD with esophagitis Hiatal hernia Subcutaneous nodule abdominal wall Continued successful drug rehab DS: Discharge Diagnosis Discharge Diagnosis (1) Hiatal hernia with GERD and esophagitis: Code(s): K44.9 - Diaphragmatic hernia without obstruction or gangrene; K21.00 - Gastro-esophageal reflux disease with esophagitis, without bleeding Status: Chronic Assessment and Plan: Underwent robotic laparoscopic repair of hiatal hernia with partial fundoplication, excision subcutaneous nodule abdominal wall, per Dr. Pat on 06/05/2024 (2) Subcutaneous nodule of abdominal wall: Code(s): R22.2 - Localized swelling, mass and lump, trunk Status: Chronic Assessment and Plan: Gross eval showed 2 cm lipoma (3) Drug abuse in remission: Code(s): F19.11 - Other psychoactive substance abuse, in remission Status: Chronic Assessment and Plan: 18 months drug free (4) Diabetes: Qualifiers: Diabetes mellitus type: other specified (including GHULAM) Diabetes mellitus residential insulin use: without terminal gauger use Diabetes mellitus complication status: without complication Qualified Code(s): E13.9 - Other specified diabetes mellitus without complications Code(s): E11.9 - Type 2 diabetes mellitus without complications Status: Chronic (5) Asthma: Qualifiers: Asthma severity: mild Asthma persistence: intermittent Asthma complication type: uncomplicated Qualified Code(s): J45.20 - Mild intermittent asthma, uncomplicated Code(s): J45.909 - Unspecified asthma, uncomplicated Status: Chronic (6) Smoker: Code(s): F17.200 - Nicotine dependence, unspecified, uncomplicated Status: Chronic DS: Summary Hospital Course Hospital Course: Patient came to the hospital and on 06/05/2024 underwent excision of a subcutaneous nodule of the mid abdominal wall. Grossly this appeared to be a lipoma. Pathology is pending at the time of this dictation. She then underwent robotic laparoscopic repair of hiatal hernia with partial fundoplication by Dr. Pat. Postoperatively, she was still in considerable pain on postop day 1. She was placed on full liquids on postop day 1. She tolerated those well. On postop day 2., her pain was improved but still was not ambulating independently and occasionally required IV analgesics. She was advanced to low-fiber diet on postop day 2. Postop day 3 she was doing quite well, comfortable on oral analgesics, ambulating independently, and was able to be discharged in good condition. Status at Discharge Functional status at discharge: independent ambulation Overall status at discharge: patient is progressing back to baseline Time Spent with Patient Time attestation: Total time spent providing and/or coordinating discharge services: Time spent: Less than 30 minutes DS: Data Data Completed and Pending Pending studies at discharge: Pending at discharge 06/05/24 12:39 Surgical [PTH] Routine Discharge Plan Discharge Attending physician on discharge: Td Pat Discharging Clinician: Td Pat Anticipated Discharge Date/Time: 06/08/24 11:48 Patient Disposition: Home, Self-Care Activity: may shower, no straining and as tolerated Diet: low fiber Wound Care Instructions: incision open to air Discharge Instructions: Ambulate 3-4 x per day and as tolerated. No lifting over 15-20lbs. May bathe or shower. Stairs are OK. May drive a car in 3 days. Eat mostly liquid or pureed food. Can have low-fiber foods but chew them very well. Eat or drink very slowly, take small bites or swallows, weight between bites or swallows. No need to continue to take famotidine acid reducing med after discharge. Call Dr. Ly office for severe pain, vomiting, temp over 100.5, other significant change in condition. Take boy
== END 2024-06-08 14:00 | disposition home or self-care (01) ==
LOC: ANHSURGERY 15:35 → ANH3MEDSUR 15:35
PROVIDERS: Admitting Provider Surgery; PCP Nurse Practitioner; Visit Provider Surgery
PROC: 0DV44ZZ Restriction of Esophagogastric Junction, Percutaneous Endoscopic Approach (ICD-10-PCS; CPT 43280; principal; 2024-06-05 12:00)
DX: K44.9 Diaphragmatic hernia without obstruction or gangrene (principal); K21.00 Gastro-esophageal reflux disease with esophagitis, without bleeding; D17.1 Benign lipomatous neoplasm of skin and subcutaneous tissue of trunk; G89.18 Other acute postprocedural pain; E11.9 Type 2 diabetes mellitus without complications; J45.20 Mild intermittent asthma, uncomplicated; F17.210 Nicotine dependence, cigarettes, uncomplicated; F14.21 Cocaine dependence, in remission; F19.11 Other psychoactive substance abuse, in remission
CPT/HCPCS: 43281; 22903; S2900; 36415; 80048; 85027; 88304; A9270; G0378; G0379; J0690; J1100; J1650; J1741; J2250; J2270; J2405; J2704; J3010; J7030; J7120